=== PATIENT | female | born 1990 | race Hispanic/Latino ===

== ENCOUNTER 2023-02-17 16:49 | Outpatient (CLI) | payer OTHER | END 2023-02-17 16:50 | disposition home or self-care (01) | LOC: SCSRAD 16:49 | PROVIDERS: ATTEND Chiropractor | DX: M54.16 Radiculopathy, lumbar region (principal); M54.12 Radiculopathy, cervical region; M54.14 Radiculopathy, thoracic region; R20.0 Anesthesia of skin | CPT/HCPCS: 72040; 72072; 72100 ==